=== PATIENT | male | born 1950 | race Caucasian/White ===

== ENCOUNTER → 2019-08-25 14:27 | Outpatient (CLI) | payer MEDICARE, OTHER, SELFPAY ==
[2013-10-01 11:07] VITALS: BMI 32.3
[2019-08-25 15:29] LABS: PSA,Total - Annual Screen 1.58 ng/mL (0.00-4.00)
== END ==
PROVIDERS: Family Provider Preventive Medicine Occupational Medicine; PCP Preventive Medicine Occupational Medicine; Referring Provider Urology; Visit Provider Urology
DX: Z12.5 Encounter for screening for malignant neoplasm of prostate (principal)
CPT/HCPCS: 36415; 84153; G0103

== ENCOUNTER 2021-10-30 14:33 | Outpatient (CLI) | payer MEDICARE, OTHER, SELFPAY ==
[2021-10-30 18:56] LABS: AST(SGOT) 36 U/L (15-37); Alanine Aminotransfer ALT/SGPT 45 U/L (16-61); Albumin, Serum 3.3 g/dL (3.2-5.0); Alkaline Phosphatase 320 U/L (45-117); Bilirubin, Direct 0.28 mg/dL (0.00-0.30); GGTP 697 U/L (15-85); Globulin 3.5 g/dL (2.2-4.2); Protein, Total 6.8 g/dL (6.4-8.2)
== END 2021-10-30 23:59 | disposition home or self-care (01) ==
LOC: MTLAB 14:34
PROVIDERS: PCP Preventive Medicine Occupational Medicine; Referring Provider Internal Medicine Gastroenterology; Visit Provider Internal Medicine Gastroenterology
DX: C25.9 Malignant neoplasm of pancreas, unspecified (principal); R74.8 Abnormal levels of other serum enzymes
CPT/HCPCS: 36415; 80076; 82977

== ENCOUNTER → 2022-01-09 | Outpatient (CLI) | payer MEDICARE, OTHER, SELFPAY ==
[2022-01-09 18:04] LABS: AST(SGOT) 53 U/L (15-37); Alanine Aminotransfer ALT/SGPT 50 U/L (16-61); Albumin, Serum 3.5 g/dL (3.2-5.0); Alkaline Phosphatase 459 U/L (45-117); Bilirubin, Direct 0.43 mg/dL (0.00-0.30); GGTP 983 U/L (15-85); Globulin 4.1 g/dL (2.2-4.2); Protein, Total 7.6 g/dL (6.4-8.2)
[2022-01-11 12:58] LABS: Carbohydrate AG 19-9 694 U/mL (0-35)
== END | disposition home or self-care (01) ==
LOC: MTLAB 15:21
PROVIDERS: PCP Preventive Medicine Occupational Medicine; Referring Provider Internal Medicine Gastroenterology; Visit Provider Internal Medicine Gastroenterology
DX: C61 Malignant neoplasm of prostate (principal)
CPT/HCPCS: 36415; 80076; 82977; 86301

== ENCOUNTER → 2022-03-12 | Outpatient (CLI) | payer MEDICARE, OTHER, SELFPAY ==
[2022-03-12 13:48] LABS: AST(SGOT) 39 U/L (15-37); Alanine Aminotransfer ALT/SGPT 45 U/L (16-61); Albumin, Serum 3.3 g/dL (3.2-5.0); Alkaline Phosphatase 320 U/L (45-117); Anion Gap 8 (5-15); BUN 8 mg/dL (7-18); BUN/Creat Ratio 12.1 RATIO (10-20); Bilirubin, Direct 0.32 mg/dL (0.00-0.30); Calcium,Total 8.8 mg/dL (8.5-10.1); Chloride 111 mmol/L (98-107); Creatinine, Serum 0.66 mg/dL (0.70-1.30); EST Glomerular Filtration Rate 126 mL/min (>60); Est Glom Filt Rate - Afr Amer 152 mL/min (>60); Globulin 3.5 g/dL (2.2-4.2); Glucose 121 mg/dL (74-106); Protein, Total 6.8 g/dL (6.4-8.2); Sodium Level 140 mmol/L (136-145)
== END | disposition home or self-care (01) ==
LOC: LABSPEC 11:16
PROVIDERS: PCP Preventive Medicine Occupational Medicine; Visit Provider Internal Medicine Hematology & Oncology
DX: C25.0 Malignant neoplasm of head of pancreas (principal)
CPT/HCPCS: 80048; 80076

== ENCOUNTER 2022-09-19 09:10 | Observation (INO) | payer MEDICARE, OTHER, SELFPAY ==
--- NOTE | 2022-09-13 09:31 | EKG12_ITS ---
Test Reason : PRE-OP Blood Pressure : / mmHG Vent. Rate : 080 BPM Atrial Rate : 080 BPM P-R Int : 168 ms QRS Dur : 086 ms QT Int : 370 ms P-R-T Axes : 063 -15 061 degrees QTc Int : 426 ms Normal sinus rhythm Low voltage QRS (Limb Leads) Borderline ECG Confirmed by DAXA GUTIÉRREZ, REBA ([id number]), video effects editor VERONICA CABAN ([id number]) on 09/14/2022 7:50:28 AM Referred By: NADYA Confirmed By:REBA MITTAL MD
--- NOTE | 2022-09-13 10:25 | RAD_ITS ---
STUDY: X-RAY CHEST REASON FOR EXAM: Male, 72 years old. PREOP TECHNIQUE: XR Chest 2 Views COMPARISON: 1.7 FINDINGS: There is atherosclerotic calcification of the aortic arch with tortuosity. There are diffuse degenerative changes of the visualized thoracic spine. There is degenerative osteoarthritis of the bilateral shoulders. There is right pleural effusions. There is right infiltrates. There is no pneumothorax. There is a vascular line in place. Cervical spine fusion hardware noted. Normal size heart. Normal mediastinum and [place]. Normal visualized pulmonary arteries. There is no demonstrated abnormality of the visualized soft tissue structures of the upper abdomen. RAD/Chest PA and Lateral IMPRESSION: There is right pleural effusions. There is right infiltrates. Electronically Signed: Homar Quach MD at 19:10 EST ,
[2022-09-13 11:08] LABS: Hematocrit 33.1 % (40-54); Hemoglobin 10.6 g/dL (13.0-16.5); Mean Corpuscular Hgb 30.9 pg (27.0-32.0); Mean Corpuscular Volume 96.5 fL (80-94); Mean Platelet Vol. 10.5 fl (6.2-12.0); Platelet Count 104 K/mm3 (150-450); RBC Distribution Width CV 14.1 % (11.6-14.6); RBC Distribution Width SD 50.1 fl (35.1-43.9); Red Blood Count 3.43 M/mm3 (4.6-6.2); White Blood Count 4.3 K/mm3 (4.4-11.0)
[2022-09-13 11:15] LABS: International Normalized Ratio 1.3; Prothrombin Time (Protime)PT. 16.1 SECONDS (11.7-14.9)
[2022-09-13 11:16] LABS: Partial Thromboplast Time 38.1 Seconds (24.1-36.2)
[2022-09-13 11:25] LABS: Hemoglobin A1c 5.9 % (3.8-5.6)
[2022-09-13 11:51] LABS: AST(SGOT) 58 U/L (15-37); Alanine Aminotransfer ALT/SGPT 57 U/L (16-61); Albumin, Serum 2.8 g/dL (3.2-5.0); Alkaline Phosphatase 395 U/L (45-117); Anion Gap 9 (5-15); BUN 8 mg/dL (7-18); BUN/Creat Ratio 12.7 RATIO (10-20); Bilirubin, Direct 0.28 mg/dL (0.00-0.30); Calcium,Total 8.1 mg/dL (8.5-10.1); Chloride 102 mmol/L (98-107); Creatinine, Serum 0.63 mg/dL (0.70-1.30); EST Glomerular Filtration Rate 133 mL/min (>60); Est Glom Filt Rate - Afr Amer 162 mL/min (>60); Glucose 230 mg/dL (74-106); Potassium 3.6 mmol/L (3.5-5.1); Protein, Total 6.8 g/dL (6.4-8.2); Sodium Level 133 mmol/L (136-145)
[2022-09-19] VITALS (16 sets, daily range): BP systolic 103–136; BP diastolic 54–80; PULSE 63–85; RESP 12–18; TEMP 36.2–37.2; O2SAT 91–98; BMI 23.4
[2022-09-19] MEDS: Lactated Ringers 1,000 ML 15 ML IV (07:32)
[2022-09-19 08:00] LABS: Bedside Glucose 167 mg/dL (74-106)
[2022-09-19] MEDS: Lactated Ringers 1,000 ML 125 ML IV ×2 (08:59→15:23)
[2022-09-19] MEDS: Cefazolin 2 GM in 0.9% Normal Saline 100 ML IV (08:59)
--- NOTE | 2022-09-19 09:00 | PROS_PTH ---
PATIENT: COTY BETANCOURT LOC: [facility] U#:[id number] AGE/SX: 72/M ROOM: AL317 RE09/19/[address]: Dr. Nayan Carey MD : 1950 BED: 1 DIS: 09/20/2022 SPEC #: [id number] RECD: 09/19/22 12:00 STATUS: TYREE IBARRA #: [id number] MARY: 09/19/22 09:[address]: Nayan Carey DEPT: SURGICAL PATHOLOGY RECD BY: Dominik Schwartz ENTERED: 09/19/22 12:32 SP TYPE: TURP OTHR DR: Dr. Coty Gonzalez DO Tissues: Prostate, NOS Procedures: Surgery Specimen Level IV HEADER OPERATION: Cysto, TUR prostate, Olympus PRE-OP DIAGNOSIS: BPH, retention of urine TISSUE SUBMITTED: Prostate chips MICROSCOPIC DIAGNOSIS Prostate, transurethral resection: Benign nodular hyperplasia, glandular and stromal types. AM:ata 09/20/2022 MICROSCOPIC DESCRIPTION Slides are reviewed. GROSS DESCRIPTION Received is one container labeled with the patient's name and designated prostate chips. The specimen consists of multiple irregular fragments of pink-hi, rubbery, soft tissue that in aggregate weigh 12.8 gm and measure in aggregate 5 x 6 x 2 cm. Service Captain tissue is submitted in ten cassettes. / SJ:ata 09/19/2022 TC:5 CPT: 84826
--- NOTE | 2022-09-19 10:21 | DCINST_ITS ---
Discharge Instructions Diet Discharge Diet: No restrictions Dressing / Incision Call your doctor if your incision/area has: Sudden Increased Bleeding Follow Up Care Please Follow Up With: Nayan Carey MD When: Call for appointment Test Results: Test results from this visit will be discussed in further detail at your follow- up appointment, if applicable. Discharge Plan Admission Primary Reason for Your Visit: rubio Attending Provider: Nayan Carey Primary Care Provider: Martin Gonzalez Instructions Patient Instructions: [facility] Home Recovery Discharge Orders/Prescriptions Prescriptions: New ciprofloxacin HCl [Cipro] 500 mg tablet 500 mg PO BID Qty: 10 0RF Continued multivitamin with folic acid [Thera] 1 TABLET tablet 1 tab PO DAILY albuterol sulfate 0.63 mg/3 mL Solution For Nebulization 0.63 mg INHALATION Q4H PRN (Reason: SOB) primidone 50 mg Tablet 50 mg PO TID tamsulosin 0.4 mg Capsule 0.4 mg PO BID pantoprazole [Protonix] 40 mg Tablet,Delayed Release (Dr/Ec) 40 mg PO DAILY budesonide 0.5 mg/2 mL Suspension For Nebulization 0.5 mg INHALATION BID finasteride 5 mg Tablet 5 mg PO DAILY insulin lispro 100 unit/mL Insulin Pen 8 unit SUBCUT TID Creon 36,000-114,000- 180,000 unit Capsule,Delayed Release(Dr/Ec) 1 cap PO TID Rx Instructions: administer with meals and/or snacks insulin degludec [Tresiba FlexTouch U-100] 100 unit/mL (3 mL) Insulin Pen 8 unit SUBCUT QHS bumetanide 1 mg Tablet 1 mg PO DAILY fluticasone propionate [Flonase Allergy Relief] 50 mcg/actuation [place],Suspension 1 spray INTRANASAL DAILY Rx Instructions: administer into each nostril Referrals / Follow Up: Nayan Carey MD [Med Staff - Active Staff] - Martin Gonzalez DO [Primary Care Provider] - Disposition Disposition (needs filled in before D/C Order can be placed): Home, Self Care
--- NOTE | 2022-09-19 10:21 | OP.PCM_ITS ---
Report of Operation Date of Procedure: 09/19/22 Pre-Operative Diagnosis: BPH with obstruction retention of urine Post-Operative Diagnosis: Same Surgery/Procedure Performed:: Transurethral section of prostate Description of Surgical Findings:: In the preoperative setting I discussed with the patient how the surgery would be done with expect afterwards. We discussed how a prostate resection is done and we discussed the risk of the surgery including, bleeding, infection, retrograde ejaculation, changes with ejaculation or intercourse,. We discussed the possibility that the resection of the prostate may not alleviate his urinary symptoms. We discussed the small risk of developing scar tissue along the urethral channel and strictures. We also discussed the chance of the prostate could grow back and he may need further surgery or treatment in the future for prostate problems. Patient was taken back to the operating room, timeout procedure was performed, he was identified and marked and placed on the operating room table. He un derwent general anesthesia. He was placed in dorsolithotomy position. Penis and testicles were prepped and draped in usual sterile fashion. Went into the bladder using the visual obturator with a resectoscope. Once inside the bladder identified the right and left ureteral orifice. I then identified the prostate and the anatomy of the prostate. I marked out the area of the sphincter and the verumontanum was identified. I then proceeded with the prostate resection first resected the median lobe. And then resected the right lobe of the prostate. Then to resect the left lobe of the prostate. I then resected the apical tissue of the prostate. This was a complete resection of all obstructive tissue to improve voiding and relieve obstruction. I then made sure that there was no injury to the sphincter or the verumontanum was still intact. At the end of the resection all the chips were Ellik out of the bladder. I then identified the left and right ureteral orifice and these were confirmed to be in good position and effluxing and not injured. The resectoscope was removed, a 22 [place] catheter was placed into the bladder on continuous irrigation. And the urine was fairly light pink color and draining normally. He was taken back to the PACU in good condition. CPT 05723 Surgeon: Nayan Carey Type of Anesthesia: General Drains: 22 [place] three-way catheter Admit VTE Documentation VTE Present on Admission: No
--- NOTE | 2022-09-19 10:21 | PCM.HP.STD ---
HPI - General General Date of Service: 09/19/22 HPI Narrative COTY BETANCOURT, is a 72 M who presents for transurethral resection of prostate for BPH and obstruction retention of urine [facility], [facility] Medical History (Updated 09/12/22 @ 08:41 by Melba Fink) Alcohol use Benign essential tremor Cancer Cardiology follow-up encounter COPD (chronic obstructive pulmonary disease) CPAP (continuous positive airway pressure) dependence Diarrhea Dietary restriction Easy bruising Former smoker Gastric reflux History of echocardiogram History of edema History of stress test Hypertension Insulin dependent diabetes mellitus On home oxygen therapy Prostate disease Shortness of breath on exertion Wears glasses Wears hearing aid Wears partial dentures Home Medications multivitamin with folic acid 400 mcg tablet (Thera) 1 tab PO DAILY 09/29/13 [History Last Taken Unknown] albuterol sulfate 0.63 mg/3 mL solution for nebulization 0.63 mg inhalation Q4H PRN SOB 09/12/22 [History Last Taken Unknown] budesonide 0.5 mg/2 mL suspension for nebulization 0.5 mg inhalation BID 09/12/22 [History Last Taken 09/19/22] bumetanide 1 mg tablet 1 mg PO DAILY 09/12/22 [History Last Taken Unknown] finasteride 5 mg tablet 5 mg PO DAILY 09/12/22 [History Last Taken Unknown] fluticasone propionate 50 mcg/actuation nasal spray,suspension (Flonase Allergy Relief) 1 spray intranasal DAILY 09/12/22 [History Last Taken Unknown] insulin degludec 100 unit/mL (3 mL) subcutaneous pen (Tresiba FlexTouch U-100 insulin) 8 unit subcut QHS 09/12/22 [History Last Taken Unknown] insulin lispro 100 unit/mL subcutaneous pen 8 unit subcut TID 09/12/22 [History Last Taken Unknown] axxdrp-[id number]-ckgbyhh 36,000-114,000-180,000 unit capsule,delay rel (Creon) 1 cap PO TID 09/12/22 [History Last Taken Unknown] pantoprazole 40 mg tablet,delayed release (Protonix) 40 mg PO DAILY 09/12/22 [History Last Taken 09/19/22] primidone 50 mg tablet 50 mg PO TID 09/12/22 [History Last Taken 09/19/22] tamsulosin 0.4 mg capsule 0.4 mg PO BID 09/12/22 [History Last Taken Unknown] ciprofloxacin HCl 500 mg tablet (Cipro) 500 mg PO BID #10 tabs 09/19/22 [Rx Last Taken Unknown] Allergy/AdvReac Type Severity Reaction Status Date / Time fosaprepitant Allergy LIGHTHEADED/BURNING Verified 09/19/22 07:30 IN KIDNEYS Surgical History (Updated 09/12/22 @ 08:41 by Melba Fink) History of cardiac catheterization History of carpal tunnel surgery of left wrist History of esophagogastroduodenoscopy (EGD) History of Whipple procedure Hx of arthroscopy of shoulder Hx of colonoscopy Hx of fusion of cervical spine Hx of left cataract extraction Hx of right cataract extraction Hx of tonsillectomy Social History Smoking Status: Former smoker Vital Signs Vital Signs Vital Signs: 09/19/22 07:35 09/19/22 07:35 Temperature 98.2 F Temperature Source Temporal Pulse Rate 80 Respiratory Rate 18 Respiratory Pattern Irregular Blood Pressure 126/80 H Blood Pressure Mean 95 Blood Pressure Source Monitor Blood Pressure Position Semi-Fowlers Blood Pressure Location Right Arm Pulse Ox 96 Oxygen Delivery Method Room Air Weight Weight: 76.204 kg Body Mass Index (BMI) 23.4 Results Lab / Micro Data Result Diagrams: 09/13/22 10:34 09/13/22 10:34 Labs: Laboratory Results - last 24 hr 09/19/22 07:26: POC Glucose 167 H
[2022-09-19 10:55] LABS: Bedside Glucose 156 mg/dL (74-106)
[2022-09-19] MEDS: Primidone 50 MG Tablet PO ×2 (16:30→20:56)
[2022-09-19] MEDS: Ciprofloxacin 400 MG/200 ML BAG 200 MG IV (17:20)
[2022-09-19] MEDS: Tamsulosin HCl 0.4 MG Capsule PO (17:20)
[2022-09-19] MEDS: Insulin Lispro 100 UNIT/ML INSULN.PEN 8 UNIT SC (17:30)
[2022-09-19 18:06] LABS: Bedside Glucose 191 mg/dL (74-106)
[2022-09-19] MEDS: Budesonide Respules 0.5 MG/2 ML AMPUL.NEB. INHALATION (20:16)
[2022-09-19] MEDS: Docusate Sodium 100 MG Capsule 200 MG PO (20:56)
[2022-09-19] MEDS: Insulin Glargine-YFGN 100 UNIT/ML Pen 8 UNIT SC (20:57)
[2022-09-19 21:25] LABS: Bedside Glucose 244 mg/dL (74-106)
[2022-09-20 03:11] VITALS: BP 105/65; PULSE 78; RESP 16; TEMP 36.9; O2SAT 98
[2022-09-20] MEDS: Ciprofloxacin 400 MG/200 ML BAG 200 MG IV (04:22)
[2022-09-20] MEDS: Insulin Lispro 100 UNIT/ML INSULN.PEN 8 UNIT SC (06:26)
[2022-09-20] MEDS: Primidone 50 MG Tablet PO (06:27)
[2022-09-20 06:43] VITALS: BP 117/60; PULSE 76; RESP 16; TEMP 36.7; O2SAT 98
[2022-09-20 07:00] LABS: Bedside Glucose 167 mg/dL (74-106)
[2022-09-20 07:37] VITALS: PULSE 77; RESP 19; O2SAT 94
[2022-09-20] MEDS: Budesonide Respules 0.5 MG/2 ML AMPUL.NEB. INHALATION (07:37)
[2022-09-20] MEDS: Pantoprazole Sodium 40 MG Tablet PO (08:43)
[2022-09-20] MEDS: Bumetanide 0.5 MG Tablet 1 MG PO (08:43)
[2022-09-20] MEDS: Docusate Sodium 100 MG Capsule 200 MG PO (08:44)
[2022-09-20] MEDS: Tamsulosin HCl 0.4 MG Capsule PO (08:44)
[2022-09-20] MEDS: Finasteride 5 MG Tablet PO (08:44)
[2022-09-20] MEDS: Fluticasone 0.05% 1 SPRAY NASAL.SRY NASAL (08:47)
[2022-09-20 09:03] VITALS: BP 101/51; PULSE 76; RESP 16; TEMP 36.8; O2SAT 97
--- NOTE | 2022-09-20 09:33 | PN.URO_ITS ---
Subjective Subjective doing well s/p rubio d/c [facility] today Objective Data Objective Data Vital Signs: Vital Signs Temp Pulse Resp BP Pulse Ox O2 Del Method O2 Flow Rate 98.3 F 76 16 101/51 L 97 Nasal Cannula 3 09/20/22 09:03 09/20/22 09:03 09/20/22 09:03 09/20/22 09:03 09/20/22 09:03 09/20/22 09:03 09/20/22 09:03 Oxygen Flow Rate (L/min) 3 Oxygen Delivery Method Nasal Cannula Weight: 76.204 kg Body Mass Index (BMI) 23.4 Intake & Output: Intake and Output for Last 24 Hours 09/18/22 09/19/22 09/20/22 23:59 23:59 23:59 Intake Total 2310 / 2310 1200 / 1200 Output Total 1600 / 1600 900 / 900 Balance 710 / 710 300 / 300 Lab / Micro Data Result Diagrams: 09/13/22 10:34 09/13/22 10:34 Labs: Laboratory Results - last 24 hr 09/19/22 10:36: POC Glucose 156 H 09/19/22 17:24: POC Glucose 191 H 09/19/22 20:56: POC Glucose 244 H 09/20/22 06:25: POC Glucose 167 H
--- NOTE | 2022-09-20 10:24 | CASEMGMT ---
MARY CM in to discuss CRUZ form with patient. RN CM explained CRUZ form, patient voiced understanding. Pt signed form and filed in chart. Pt provided with a copy of signed CRUZ form. Patient had no further questions or concerns at this time.
[2022-09-20 11:20] VITALS: BP 98/49; PULSE 84; RESP 16; TEMP 36.7; O2SAT 92
[2022-09-20 11:41] LABS: Bedside Glucose 156 mg/dL (74-106)
[2022-09-20] MEDS: 0.9% Saline Lock 10 ML Syringe IV (12:11)
== END 2022-09-20 12:34 | disposition home or self-care (01) ==
LOC: MS3 19:05 → SDC 09-20 07:06 → MS3 09-20 07:06
PROVIDERS: Anesthesiology; Admitting Provider Urology; PCP Preventive Medicine Occupational Medicine; Referring Provider Urology; Visit Provider Urology
PROC: (CPT 52601; principal; 2022-09-19 08:50)
DX: N40.1 Benign prostatic hyperplasia with lower urinary tract symptoms (principal); J44.9 Chronic obstructive pulmonary disease, unspecified; E11.9 Type 2 diabetes mellitus without complications; Z79.4 Long term (current) use of insulin; Z79.51 Long term (current) use of inhaled steroids; Z87.891 Personal history of nicotine dependence; I10 Essential (primary) hypertension; N13.8 Other obstructive and reflux uropathy; R33.8 Other retention of urine; Z79.899 Other long term (current) drug therapy; R39.12 Poor urinary stream; K21.9 Gastro-esophageal reflux disease without esophagitis; Z86.2 Personal history of diseases of the blood and blood-forming organs and certain disorders involving the immune mechanism; R06.02 Shortness of breath
CPT/HCPCS: 52601; 36415; 71046; 80048; 80076; 82962; 83036; 85027; 85610; 85730; 88305; 93005; 94640; 96361; 96365; 96366; 99218; 99251; 99252; J7120; A4216; G0378; G0463; J0744; J2405

== ENCOUNTER → 2023-01-22 | Outpatient (CLI) | payer MEDICARE, OTHER, SELFPAY ==
[2023-01-24 16:09] LABS: Endomysial Antibody IgA Negative (Negative); Immunoglobulin A 461 mg/dL (61-437); t-Transglutaminase IgA <2 U/mL (0-3)
== END | disposition home or self-care (01) ==
LOC: MTLAB 14:53
PROVIDERS: PCP Preventive Medicine Occupational Medicine; Referring Provider Internal Medicine Gastroenterology; Visit Provider Internal Medicine Gastroenterology
DX: R19.7 Diarrhea, unspecified (principal)
CPT/HCPCS: 36415; 82705; 82784; 83516; 86140; 86255

== ENCOUNTER → 2023-01-24 | Outpatient (CLI) | payer MEDICARE, OTHER, SELFPAY ==
[2023-01-28 20:07] LABS: Fats, Neutral Increased (.); Fats, Total Increased (.)
== END | disposition home or self-care (01) ==
LOC: MTLAB 08:25
PROVIDERS: PCP Preventive Medicine Occupational Medicine; Referring Provider Internal Medicine Gastroenterology; Visit Provider Internal Medicine Gastroenterology
DX: R19.7 Diarrhea, unspecified (principal)
CPT/HCPCS: 82705

== ENCOUNTER → 2023-02-04 | Outpatient (CLI) | payer MEDICARE, OTHER, SELFPAY | END | disposition home or self-care (01) | LOC: LAB 11:02 | PROVIDERS: PCP Preventive Medicine Occupational Medicine; Referring Provider Urology; Visit Provider Urology | DX: N40.1 Benign prostatic hyperplasia with lower urinary tract symptoms (principal) | CPT/HCPCS: 36415; 84153 ==